=== PATIENT | female | born 1935 | race Caucasian/White ===

== ENCOUNTER 2019-02-16 23:06 | Inpatient (IN) | payer OTHER, BC ==
--- NOTE | 2019-02-16 23:17 | EDPHY ---
H & P Stated Complaint: Vomiting with abdominal and chest pain. Time Seen by Provider: 02/16/19 23:11 HPI/ROS: HPI The patient presents with chest pain which began this afternoon which she describes as a constant pressure-like sensation in her lower chest. She then later today developed nausea and vomiting and had multiple episodes of nonbloody nonbilious emesis. She attempted to go to bed tonight, however her vomiting persisted and family members called 911. She is also complaining of abdominal pain which is diffuse and achy in nature. Paramedics gave her aspirin and Zofran in route. She is visiting for her grandson's graduation from [employer].. REVIEW OF SYSTEMS 10 systems were reviewed and negative with the exception of the elements mentioned in the history of present illness. PMHx: History of migraine headache, hypothyroidism, chronic diffuse back pain, history of asthma Soc Hx: Visiting from out of town, currently staying at a hotel PHYSICAL General Appearance: Alert, actively vomiting Eyes: Pupils equal and round no pallor or injection ENT, Mouth: Mucous membranes moist Respiratory: There are no retractions, lungs are clear to auscultation Cardiovascular: Regular rate and rhythm Gastrointestinal: Abdomen is soft and non-tender, no masses, bowel sounds normal Neurological: A&O, moves all extremities Skin: Warm and dry, no rashes Musculoskeletal: Neck is supple non tender Extremities: symmetrical, full range of motion Psychiatric: Patient is oriented X 3, there is no agitation Source: Patient, EMS Exam Limitations: No limitations Constitutional: Initial Vital Signs Temperature (C) 37.1 C 02/16/19 23:14 Heart Rate 78 02/16/19 23:14 Respiratory Rate 18 02/16/19 23:14 Blood Pressure 131/83 H 02/16/19 23:14 O2 Sat (%) 92 02/16/19 23:14 O2 Delivery Mode Nasal Cannula O2 (L/minute) 2 Allergies/Adverse Reactions: dog dander Allergy (Verified 02/16/19 23:12) zaragoza Allergy (Verified 02/16/19 23:12) oak Allergy (Verified 02/16/19 23:12) quetiapine [From Seroquel] Allergy (Verified 02/16/19 23:12) Home Medications: Medication Instructions Recorded Butal/Asp/Caffeine-Fiorinal 02/16/19 Hydrocodone-Acetamin 5-325 mg 02/16/19 Levothyroxine 02/16/19 MIRTAZAPINE 02/16/19 Temazepam 02/16/19 Medical Decision Making - Diagnostics EKG Interpretation: EKG: Complete interpretation has been separately recorded in the [facility] archive. Summary impression: Normal sinus rhythm, no signs of ischemia Imaging Results: CT abdomen pelvis with IV contrast demonstrates small hypodense lesion at the head of the pancreas measures 12 mm with no evidence of acute pancreatitis, interpreted by direct Radiology. Chest x-ray two views is unremarkable, interpreted by me, radiology interpretation pending. Imaging: Discussed imaging studies w/ wood handler Radiologist Differential Diagnosis: 83-year-old female with history of migraine headaches, chronic pain presents from her hotel brought in by ambulance with chest pain, abdominal pain, nausea and vomiting. Here, she is having active vomiting. Vital signs are normal. Differential diagnosis includes viral gastroenteritis, perforated peptic ulcer, ACS, aortic dissection. Here, patient received IV fluids and Zofran, however had ongoing vomiting requiring additional Phenergan. Despite this she still had vomiting. She complained mostly of epigastric abdominal pain. EKG, chest x-ray, troponin were all unremarkable. Abdominal labs were normal as well. She underwent CT scan of her abdomen which showed a hypodense area in the inferior head of the pancreas which is less likely to be related to her symptoms. I plan to admit her to the hospital given her intractable vomiting and pain. I have discussed this with the patient and her family and they are happy with this plan. - Data Points Laboratory Results: Laboratory Results 02/16/19 23:05 02/16/19 23:05 02/16/19 02/16/19 02/16/19 23:26 23:05 23:05 WBC 7.77 10^3/uL 10^3/uL (3.80-9.50) RBC 4.42 10^6/uL 10^6/uL (4.18-5.33) Hgb 12.9 g/dL g/dL (12.6-16.3) Hct 38.0 % % (38.0-47.0) MCV 86.0 fL fL (81.5-99.8) MCH 29.2 pg pg (27.9-34.1) MCHC 33.9 g/dL g/dL (32.4-36.7) RDW 13.9 % % (11.5-15.2) Plt Count 420 10^3/uL H 10^3/uL (150-400) MPV 10.0 fL fL (8.7-11.7) Neut % (Auto) 85.1 % H % (39.3-74.2) Lymph % (Auto) 11.6 % L % (15.0-45.0) [place] % (Auto) 2.4 % L % (4.5-13.0) Eos % (Auto) 0.1 % L % (0.6-7.6) Baso % (Auto) 0.4 % % (0.3-1.7) Nucleat RBC Rel Count 0.0 % % (0.0-0.2) Absolute Neuts (auto) 6.61 10^3/uL H 10^3/uL (1.70-6.50) Absolute Lymphs (auto) 0.90 10^3/uL L 10^3/uL (1.00-3.00) Absolute Monos (auto) 0.19 10^3/uL L 10^3/uL (0.30-0.80) Absolute Eos (auto) 0.01 10^3/uL L 10^3/uL (0.03-0.40) Absolute Basos (auto) 0.03 10^3/uL 10^3/uL (0.02-0.10) Absolute Nucleated RBC 0.00 10^3/uL 10^3/uL (0-0.01) Immature Gran % 0.4 % % (0.0-1.1) Immature Gran # 0.03 10^3/uL 10^3/uL (0.00-0.10) Sodium 133 mEq/L L mEq/L (135-145) Potassium 3.8 mEq/L mEq/L (3.5-5.2) Chloride 102 mEq/L mEq/L (97-110) Carbon Dioxide 20 mEq/l L mEq/l (22-31) Anion Gap 11 mEq/L mEq/L (6-14) BUN 17 mg/dL mg/dL (7-23) Creatinine 0.5 mg/dL L mg/dL (0.6-1.0) Estimated GFR > 60 Glucose 109 mg/dL H mg/dL (70-100) Calcium 9.4 mg/dL mg/dL (8.5-10.4) Total Bilirubin 0.5 mg/dL mg/dL (0.1-1.4) AST 19 IU/L IU/L (14-46) ALT 26 IU/L IU/L (9-52) Alkaline Phosphatase 56 IU/L IU/L (38-126) POC Troponin I 0.01 ng/mL ng/mL (0.00-0.08) Total Protein 6.2 g/dL L g/dL (6.3-8.2) Albumin 4.2 g/dL g/dL (3.5-5.0) Lipase 32 IU/L IU/L (23-300) Medications Given: Sodium Chloride (Ns) 1,000 mls @ 100 mls/hr IV CONT RIZWANA Stop: 08/16/19 01:44 Last Admin: 02/17/19 03:19 Dose: 1,000 mls Ondansetron HCl (Zofran) 4 mg IVP Q4HRS PRN PRN Reason: Nausea/Vomiting, Can't Take PO Stop: 08/16/19 01:41 Last Admin: 02/17/19 02:53 Dose: 4 mg Promethazine HCl (Phenergan) 6.25 - 12.5 mg IVP Q6HRS PRN PRN Reason: Nausea/Vomiting, Use 2nd Stop: 08/16/19 01:41 Last Admin: 02/17/19 03:49 Dose: 6.25 mg Discontinued Medications Fentanyl (Sublimaze) 50 mcg IVP EDNOW ONE Stop: 02/17/19 00:46 Last Admin: 02/17/19 00:46 Dose: 50 mcg Sodium Chloride (Ns) 1,000 mls @ 0 mls/hr IV EDNOW ONE; Wide Open PRN Reason: Protocol Stop: 02/16/19 23:24 Last Admin: 02/16/19 23:30 Dose: 1,000 mls Ondansetron HCl (Zofran) 4 mg IVP EDNOW ONE Stop: 02/16/19 23:24 Last Admin: 02/16/19 23:30 Dose: 4 mg Promethazine HCl (Phenergan) 12.5 mg IVP EDNOW ONE Stop: 02/17/19 00:40 Last Admin: 02/17/19 00:40 Dose: 12.5 mg Point of Care Test Results: Chemistry 02/16/19 23:26 POC Troponin I 0.01 ng/mL ng/mL (0.00-0.08) Departure - Departure Disposition: [facility] Inpatient Acute Clinical Impression: Epigastric abdominal pain Vomiting Qualifiers: Vomiting type: unspecified Vomiting Intractability: intractable Nausea presence : with nausea Qualified Code(s): R11.2 - Nausea with vomiting, unspecified Condition: Fair
[2019-02-16] MEDS ORDERED: ONDANSETRON 4 MG/2 ML VIAL IVP ONE (23:23)
[2019-02-16] MEDS ORDERED: NS 1,000 ML IV ONE (23:23)
[2019-02-16 23:40] LABS: PLATELET COUNT 420 10^3/uL (150-400)
[2019-02-17] MEDS ORDERED: IOPAMIDOL (ISOVUE-300) 100 ML BTL ONE (00:16)
[2019-02-17] MEDS ORDERED: PROMETHAZINE HCL 25 MG/ML INJ ONE (00:36)
[2019-02-17] MEDS ORDERED: PROMETHAZINE HCL 25 MG/ML INJ IVP ONE (00:39)
[2019-02-17] MEDS ORDERED: fentaNYL 100 MCG/2 ML INJ ONE (00:43)
[2019-02-17] MEDS ORDERED: fentaNYL 100 MCG/2 ML INJ IVP ONE (00:45)
[2019-02-17] MEDS ORDERED: ACETAMINOPHEN 325 MG TAB PO PRN (01:42)
[2019-02-17] MEDS ORDERED: ONDANSETRON DISINTEGRATING 4 MG TAB PO PRN (01:42)
[2019-02-17] MEDS ORDERED: NS 1,000 ML IV SCH (01:45)
--- NOTE | 2019-02-17 02:34 | PDGENHP ---
History and Physical - Chief Complaint Vomiting, abdominal pain - History of Present Illness 83 yo F w/ hx of depression and hypothyroid presents with vomiting and abdominal pain. The patient is visiting for her grandson's graduation. The patient developed acute onset of vomiting and epi-gastric pain around noon today. This persisted for several hours so she came in to the ED for evaluation. She had yogurt and coffee for breakfast. She denies any recent illness or sick contacts. Also denies fever, melena, and BRBPR. Her symptoms are improved at the time of my evaluation after treatment with fentanyl and Phenergan. Her abdominal exam is reassuring; only mildly tender in the epi- gastrium. A CT scan was obtained, which did not find any acute pathology. A 12 mm hypodense lesion in the pancreas was incidentally found. She is being admitted for symptom control and observation. Case discussed with ED physician Dr. Nunez; records reviewed and summarized above. History Information - Allergies/Home Medication List Allergies/Adverse Reactions: dog dander Allergy (Verified 02/16/19 23:12) zaragoza Allergy (Verified 02/16/19 23:12) oak Allergy (Verified 02/16/19 23:12) quetiapine [From Seroquel] Allergy (Verified 02/16/19 23:12) Home Medications: Butal/Asp/Caffeine-Fiorinal 02/16/19 [Last Taken Unknown] Hydrocodone-Acetamin 5-325 mg 02/16/19 [Last Taken Unknown] Levothyroxine 02/16/19 [Last Taken Unknown] MIRTAZAPINE 02/16/19 [Last Taken Unknown] Temazepam 02/16/19 [Last Taken Unknown] I have personally reviewed and updated: family history, medical history - Past Medical History cancer Additional medical history: Hypothyroid. Depression - Surgical History Reports: mastectomy - Family History Positive for: CAD - Social History Smoking Status: Former smoker Review of Systems Review of Systems: ROS: 10pt was reviewed & negative except for what was stated in HPI & below Physical Exam Physical Exam: Temp Pulse Resp BP Pulse Ox 37.1 C 82 18 155/75 H 97 02/16/19 23:14 02/17/19 01:21 02/17/19 01:21 02/17/19 01:21 02/17/19 01:21 Constitutional: appears nourished, uncomfortable Eyes: PERRL, EOMI Ears, Nose, Mouth, Throat: moist mucous membranes, no oral mucosal ulcers Cardiovascular: regular rate and rhythym, no murmur, rub, or gallop Respiratory: no respiratory distress, clear to auscultation Gastrointestinal: normoactive bowel sounds, tenderness (Epigastric), No guarding , No rebound, No distension Skin: warm, normal color Musculoskeletal: full muscle strength, no muscle tenderness Neurologic: AAOx3, CN II-XII Intact Psychiatric: interacting appropriately, not anxious Lab Data & Imaging Review 02/16/19 23:05 02/16/19 23:05 WBC 7.77 10^3/uL (3.80-9.50) 02/16/19 23:05 RBC 4.42 10^6/uL (4.18-5.33) 02/16/19 23:05 Hgb 12.9 g/dL (12.6-16.3) 02/16/19 23:05 Hct 38.0 % (38.0-47.0) 02/16/19 23:05 MCV 86.0 fL (81.5-99.8) 02/16/19 23:05 MCH 29.2 pg (27.9-34.1) 02/16/19 23:05 MCHC 33.9 g/dL (32.4-36.7) 02/16/19 23:05 RDW 13.9 % (11.5-15.2) 02/16/19 23:05 Plt Count 420 10^3/uL (150-400) H 02/16/19 23:05 MPV 10.0 fL (8.7-11.7) 02/16/19 23:05 Neut % (Auto) 85.1 % (39.3-74.2) H 02/16/19 23:05 Lymph % (Auto) 11.6 % (15.0-45.0) L 02/16/19 23:05 [place] % (Auto) 2.4 % (4.5-13.0) L 02/16/19 23:05 Eos % (Auto) 0.1 % (0.6-7.6) L 02/16/19 23:05 Baso % (Auto) 0.4 % (0.3-1.7) 02/16/19 23:05 Nucleat RBC Rel Count 0.0 % (0.0-0.2) 02/16/19 23:05 Absolute Neuts (auto) 6.61 10^3/uL (1.70-6.50) H 02/16/19 23:05 Absolute Lymphs (auto) 0.90 10^3/uL (1.00-3.00) L 02/16/19 23:05 Absolute Monos (auto) 0.19 10^3/uL (0.30-0.80) L 02/16/19 23:05 Absolute Eos (auto) 0.01 10^3/uL (0.03-0.40) L 02/16/19 23:05 Absolute Basos (auto) 0.03 10^3/uL (0.02-0.10) 02/16/19 23:05 Absolute Nucleated RBC 0.00 10^3/uL (0-0.01) 02/16/19 23:05 Immature Gran % 0.4 % (0.0-1.1) 02/16/19 23:05 Immature Gran # 0.03 10^3/uL (0.00-0.10) 02/16/19 23:05 Sodium 133 mEq/L (135-145) L 02/16/19 23:05 Potassium 3.8 mEq/L (3.5-5.2) 02/16/19 23:05 Chloride 102 mEq/L (97-110) 02/16/19 23:05 Carbon Dioxide 20 mEq/l (22-31) L 02/16/19 23:05 Anion Gap 11 mEq/L (6-14) 02/16/19 23:05 BUN 17 mg/dL (7-23) 02/16/19 23:05 Creatinine 0.5 mg/dL (0.6-1.0) L 02/16/19 23:05 Estimated GFR > 60 02/16/19 23:05 Glucose 109 mg/dL (70-100) H 02/16/19 23:05 Calcium 9.4 mg/dL (8.5-10.4) 02/16/19 23:05 Total Bilirubin 0.5 mg/dL (0.1-1.4) 02/16/19 23:05 AST 19 IU/L (14-46) 02/16/19 23:05 ALT 26 IU/L (9-52) 02/16/19 23:05 Alkaline Phosphatase 56 IU/L (38-126) 02/16/19 23:05 POC Troponin I 0.01 ng/mL (0.00-0.08) 02/16/19 23:26 Total Protein 6.2 g/dL (6.3-8.2) L 02/16/19 23:05 Albumin 4.2 g/dL (3.5-5.0) 02/16/19 23:05 Lipase 32 IU/L (23-300) 02/16/19 23:05 Assessment & Plan Assessment: 83 yo F w/ hypothyroid and depression presents with vomiting and abdominal pain. Plan: 1. Vomiting, abdominal pain - Most likely gastroenteritis from clinical picture ; her work-up and abdominal exam are reassuring. Her CT scan does not show any acute pathology. - Admit for observation - Clear liquids, ADAT - mIVF, anti-emetics PRN - GI PCR if diarrhea develops, none currently 2. Pancreatic lesion - CT scan demonstrates 12 mm hypodense lesion, likely an incidental finding. - Recommend outpatient follow-up and surveillance imaging 3. Hyponatremia - Mild, likely from vomiting and dehydration. - Repeat BMP after IVF 4. Hypothyroid - Continue LTX 5. Depression - Continue home meds pending reconciliation Diet - Clears, mIVF, ADAT Code - Full Ppx - LMWH Dispo - Admit under observation status
[2019-02-17] MEDS: ONDANSETRON 4 MG/2 ML VIAL IVP PRN ×2 (02:53→07:51)
[2019-02-17] MEDS: PROMETHAZINE HCL 25 MG/ML INJ IVP PRN ×2 (03:49→10:26)
--- NOTE | 2019-02-17 04:39 | CPEKG ---
Test Reason : OPEN Blood Pressure : / mmHG Vent. Rate : 077 BPM Atrial Rate : 082 BPM P-R Int : 178 ms QRS Dur : 097 ms QT Int : 407 ms P-R-T Axes : 043 036 047 degrees QTc Int : 461 ms Sinus rhythm Low voltage, extremity leads Confirmed by Liat Nunez ([id number]) on 02/17/2019 4:39:16 AM Referred By: Liat Nunez Confirmed By:Liat Nunez
[2019-02-17 06:01] LABS: PLATELET COUNT 393 10^3/uL (150-400)
[2019-02-17] MEDS: ENOXAPARIN 30 MG/0.3 ML SYR SC SCH (08:59)
[2019-02-17] MEDS ORDERED: BUTAL/ASP/CAFFEINE-FIORINAL 1 EACH CAP PO PRN (09:10)
[2019-02-17] MEDS ORDERED: LIDOCAINE 4%/MENTHOL 1% PATCH TD PRN (09:10)
[2019-02-17] MEDS ORDERED: TEMAZEPAM 15 MG CAP PO PRN (09:10)
[2019-02-17] MEDS: MUPIROCIN 2% 22 GM OINT TP SCH ×2 (10:10→17:32)
[2019-02-17] MEDS: CETIRIZINE 10 MG TAB PO SCH (10:11)
[2019-02-17] MEDS: LEVOTHYROXINE 100 MCG TAB PO SCH (10:11)
[2019-02-17] MEDS: FLUTICASONE NASAL 120 SPRAYS/16 GM MDI EACHNARE SCH (10:14)
[2019-02-17] MEDS: IPRATROPIUM 0.06% NASAL SPRAY EACHNARE SCH (10:15)
[2019-02-17] MEDS: AZELASTINE NASAL MDI EACHNARE SCH (10:17)
--- NOTE | 2019-02-17 10:42 | HOSPPROG ---
Hospitalist Progress Note Assessment/Plan: 83 yo F w/ hypothyroid and depression presents with vomiting and abdominal pain. * vomiting with associated abdominal pain * pancreatic lesion -CT scan demonstrates a 12 min mm hypodense lesion -recommendation is outpatient follow-up and surveillance imaging -will need a EUS or MRI for further eval *small solid nodule on right kidney -should get f/u imaging in addition * hyponatremia -likely secondary to hypovolemia -resolved * hypothyroidism -resumed Synthroid * depression -stable * plan. Patient is feeling better. Will see if she tolerates a regular diet. She is from the [facility]. Will have her get further followup in the outpatient setting. Subjective: Candy is sleepy, had no difficulty w eating clear liquids Objective: Vital Signs Temp Pulse Resp BP Pulse Ox 37.4 C 81 16 125/70 H 90 L 02/17/19 08:50 02/17/19 08:50 02/17/19 08:50 02/17/19 08:50 02/17/19 08:50 Laboratory Results 02/17/19 05:35 02/17/19 05:35 02/16/19 02/17/19 02/18/19 05:59 05:59 05:59 Intake Total 275 Output Total 5 Balance 270 - Physical Exam Constitutional: no apparent distress, not in pain Eyes: PERRL Ears, Nose, Mouth, Throat: hearing normal Cardiovascular: regular rate and rhythym Respiratory: no respiratory distress Gastrointestinal: normoactive bowel sounds, soft, non-tender abdomen Skin: warm Neurologic: AAOx3 ICD10 Worksheet Patient Problems: Problems Problem Status Onset Epigastric abdominal pain Acute Vomiting Acute
[2019-02-17] MEDS: FLUTICASONE HFA 110 MCG MDI IH SCH ×2 (10:55→22:14)
[2019-02-17] MEDS ORDERED: PANTOPRAZOLE SODIUM 40 MG TAB PO ONE (13:03)
--- NOTE | 2019-02-17 16:36 | ASMTCMCOM ---
CM Note CM Note Notes: Met with pt and , she was admitted for nausea and vomiting. Pt and are visiting from [place], they came for a graduation. She and her live independently in [place], and plan on flying back home on Wednesday. Pt has discharge order but began to feel naseous again, if able to leave, she will return to [facility] assisted by family and fly home tomorrow. DC Plan: Independent Date Signed: 02/17/2019 04:35 PM Electronically Signed By:Mansi Charles RN
--- NOTE | 2019-02-17 16:37 | ASMTLACE ---
ROXI Length of stay for Answers: 1 day current admission Acuity / Level of Answers: No Care: Did the patient have an inpatient admission? Comorbidities - select Answers: Opioid dependence all that apply / Chronic pain Other Notes: Hypothyroid # of Emergency department Answers: 1-2 visits in the last 6 months Social determinants Answers: Mental health diagnosis (anxiety, depression, pers onality disorders, etc.) Score: 10 Date Signed: 02/17/2019 04:35 PM Electronically Signed By:Mansi Charles RN
--- NOTE | 2019-02-17 18:39 | GDS ---
[f rep st] DISCHARGE SUMMARY DISCHARGE DIAGNOSES: 1. Vomiting with associated abdominal pain. 2. Pancreatic lesion. 3. Small solid nodule on her right kidney. 4. Hyponatremia. 5. Hypothyroidism. 6. Depression. HISTORY OF PRESENT ILLNESS: Briefly, Candy Bright is an 83-year-old woman who is here visiting [place] from the [place] area. She was here for her grandson's graduation. She developed acute onset of vomiting and epigastric pain. It persisted several hours, so she came to the emergency room for evaluation. She denies any recent illness or sick contact. A CT was obtained, which did not find any acute pathology. She has a 12 mm hypodense lesion in the pancreas that was incidentally found. Today, she is eating and drinking well, not really having any significant abdominal pain. She has a long history of headaches and is being followed up at [facility]. HOSPITAL COURSE: 1. Vomiting with abdominal pain. None further. Was able to tolerate clear liquids and some solid food for lunch. 2. Pancreatic lesion. Her CT scan demonstrated a 12 mm hypodense lesion, curb- sided Gastroenterology. They recommended that she get an EUS when she returns home. The family and the patient are aware of this. 3. Small solid nodule in the right kidney. This also should get followup surveillance evaluation every 6 months. 4. Hyponatremia, resolved. This is secondary to hypovolemia. 5. Hypothyroidism. Resumed her Synthroid. 6. Depression. This is stable. DISCHARGE CONDITION: Stable. Blood pressure is 125/70, heart rate of 81, respiratory rate is 16, O2 sats on room air are 94%, temperature is 37.4 Celsius. MEDICATIONS AT DISCHARGE: Please see the EMR. DISCHARGE INSTRUCTIONS: 1. She is on Fiorinal. This may be causing some of her symptoms. She takes this as needed for migraines and the side-effects are nausea, vomiting, abdominal pain. I have reviewed this with the patient. 2. To follow up with her primary care doctor about taking Restoril with Remeron. This includes the risk of falling and dizziness. 3. To take a copy of her CT scan with her. She needs further evaluation in regard to her pancreatic lesion, as well as her nodule on her right kidney. 4. Take Prilosec 30 minutes in the morning prior to eating to see if this helps with her burping. 5. Stay well hydrated. /[id number]/MODL MTDD
[2019-02-17] MEDS ORDERED: LR 1,000 ML IV SCH (20:30)
[2019-02-17] MEDS ORDERED: MIRTAZAPINE 15 MG TAB PO SCH (21:00)
[2019-02-18] MEDS: LEVOTHYROXINE 100 MCG TAB PO SCH (06:11)
[2019-02-18 07:49] VITALS: BP 151/66
[2019-02-18] MEDS: IPRATROPIUM 0.06% NASAL SPRAY EACHNARE SCH ×2 (08:15→10:13)
[2019-02-18] MEDS: AZELASTINE NASAL MDI EACHNARE SCH ×2 (08:15→10:13)
[2019-02-18] MEDS: FLUTICASONE HFA 110 MCG MDI IH SCH (09:24)
[2019-02-18] MEDS ORDERED: POTASSIUM CL 20 MEQ/15 ML UDCUP PO ONE (09:59)
[2019-02-18] MEDS: CETIRIZINE 10 MG TAB PO SCH (10:13)
[2019-02-18] MEDS: ENOXAPARIN 30 MG/0.3 ML SYR SC SCH (10:13)
[2019-02-18] MEDS: FLUTICASONE NASAL 120 SPRAYS/16 GM MDI EACHNARE SCH (10:14)
[2019-02-18] MEDS: MUPIROCIN 2% 22 GM OINT TP SCH (10:14)
[2019-02-18] MEDS ORDERED: PANTOPRAZOLE SODIUM 40 MG TAB PO SCH (10:15)
--- NOTE | 2019-02-18 10:55 | PDMN ---
Medical Necessity Medical necessity: Change to IP, as of 02/17/19, per [facility] General Discharge Criteria; los >2 mn for ongoing management of persistent nausea; requiring further monitoring & IV antiemetics; comorbid advanced age
--- NOTE | 2019-02-18 19:56 | GDS ---
[f rep st] DISCHARGE SUMMARY DISCHARGE DIAGNOSES: 1. Nausea and vomiting. 2. Pyloric inflammation, needs further evaluation. 3. Pancreatic head hypodensity. 4. Kidney nodule. 5. Hypovolemia. 6. Hyponatremia. HISTORY: The patient is an 83-year-old female visiting from [place] for her grandson's graduation from . She developed acute onset of vomiting and epigastric pain persisting for many hours, so radu mathews came to the emergency room and was admitted to the hospital. Her nausea and pain persisted. She h ad a CT scan of the abdomen and pelvis, which did show some inflammation in the pyloric region. The family desired to travel back to [place] and seek GI consultation there rather than doing an EGD h ere. The patient did tolerate some solid food prior to discharge. She can continue on a proton pump inhibitor until outpatient GI evaluation. They can also consider whether or not an MRCP versus endo scopic ultrasound is the next best step regarding the pancreatic lesion incidentally found. DISCHARGE MEDICATIONS: Please see computerized record for full detailed list. New medications: Amy losec OTC 20 mg p.o. daily. ADDITIONAL DISCHARGE INSTRUCTIONS: 1. Recommend urgent EGD upon arrival back to [place] to evaluate evidence of pyloric inflammation seen on CT. 2. Take Prilosec OTC once daily until seen by GI in [place]. 3. Recommend further workup with MRCP and possible endoscopic ultrasound for small pancreatic lesion incidentally seen on CT. 4. Small kidney lesion can be evaluated with MRI at that same time. 5. Diet only as tolerated. Okay to do liquids only until GI evaluation in [place]. They have al ready made an appointment with a behavioral analyst on Wednesday morning, which is only 2 days from now. Greater than 30 minutes' time spent arranging this discharge. Patient was seen and examined by me on the day of discharge. /[id number]/MODL
== END 2019-02-18 11:01 | disposition home or self-care (01) | DRG 392 ==
LOC: F3E 02-17 03:05 → OBSVTOIN 02-17 20:03
PROVIDERS: ADMIT Student in an Organized Health Care Education/Training Program; ATTEND Student in an Organized Health Care Education/Training Program
DX: K29.70 Gastritis, unspecified, without bleeding (principal); E87.1 Hypo-osmolality and hyponatremia; D37.8 Neoplasm of uncertain behavior of other specified digestive organs; D30.01 Benign neoplasm of right kidney; E86.1 Hypovolemia; E03.9 Hypothyroidism, unspecified; F32.9 Major depressive disorder, single episode, unspecified; Z87.891 Personal history of nicotine dependence
CPT/HCPCS: 84484-ER; 96374; J1650; J2405; J2550; J3010; Q9967